=== PATIENT | female | born 2005 | race Two or more races ===

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

== ENCOUNTER 2025-07-10 20:56 | Emergency (ER) | payer SELFPAY ==
--- NOTE | ~2025-07-10 | XR_ITS ---
CLINICAL HISTORY: sob, cough 2 view chest x-ray Comparison: CR - XR CHEST 1V - 12/07/24 21:57 EDT Findings: No consolidation or pleural effusion. Normal size heart. No acute fracture. IMPRESSION: 1. No acute findings. This document has been electronically signed by: Carmen Ascencio MD on 07/10/2025 21:48:04
[2025-07-10 21:03] VITALS: BP 123/80; PULSE 101; RESP 22; TEMP 37; O2SAT 93; BMI 19.5
--- NOTE | 2025-07-10 21:34 | ED_ITS ---
HPI - URI/Sore Throat General Chief Complaint: Upper Respiratory Symptoms Stated Complaint: difficulty breathing Time Seen by Provider: 07/10/25 21:28 Source: patient Mode of arrival: ambulatory Limitations: no limitations History of Present Illness ED Provider: Dr. Lavinia Croft HPI Narrative: Patient comes to the emergency room complaining of 1 day of cough, congestion, and a bit of shortness of breath. Patient denies nausea vomiting diarrhea, denies fever or chills. Related Data Previous Rx's ?Medication ?Instructions ?Recorded cimetidine 200 mg tablet (Tagamet 200 mg PO QID 14 day s #56 tabs 05/06/21 HB) ondansetron 4 mg disintegrating 4 mg PO Q6-8H PRN naus ea and 05/06/21 tablet vomiting #14 tabs ondansetron HCl 4 mg tablet 4 mg PO Q8H PRN nausea and 05/12/21 (Zofran) vomiting #10 tabs diphenhydramine HCl 25 mg capsule 25 mg PO QID PRN all ergic 04/19/22 (Benadryl) reaction, rash, itchiness #2 0 caps prednisone 20 mg tablet 40 mg (2 x 20 mg) PO DAILY 5 days 04/19/22 #10 tabs albuterol sulfate 90 mcg/actuation 1 inh inhalation QI D PRN shortness 12/07/24 aerosol inhaler of breath or wheezing #6.7 g phyllis prednisone 20 mg tablet 20 mg PO DAILY #4 tabs 12/07 Allergies Allergy/AdvReac Type Severity Reaction Status Date / Time No Known Allergies Allergy Verified 07/10/25 21:04 Review of Systems Review of Systems: Constitutional : No Weight loss, No Fever, No Chills, No Night Sweats, No Fatigue, No Malaise ENT/Mouth : No Hearing loss, No Ear Pain, complaining of Nasal Congestion, No Sinus Pain, No Hoarseness, No sore throat, No Rhinorrhea, No Swallowing Difficulty Eyes: No Eye Pain, No Swelling, No Redness, No Foreign Body, No Discharge, No Vision Changes Cardiovascular : No Chest Pain, No SOB, No Dyspnea on Exertion, No Orthopnea, No Edema, No Palpitations Respiratory : Complaining of mild cough, shortness of breath Gastrointestinal : No Nausea, No Vomiting, No Diarrhea, No Constipation, No abdominal Pain, No Hematochezia, No Melena Genitourinary : no irregular bleeding, No Dysuria, No Urinary Frequency, No Hematuria, No Urinary Incontinence, No Urgency, No Flank Pain, No Urinary Flow Changes, No Hesitancy Musculoskeletal : No joint pain, No Myalgias, No Joint Swelling Skin : No Skin Lesions, No rash Neuro : No Weakness, No Numbness, No Paresthesias, No Loss of Consciousness, No Dizziness, No Headache Psych : No Anxiety/Panic, No Depression, No SI/HI/AH/VH, No Social Issues, Heme/Lymph: No Bruising, No Bleeding,No Lymphadenopathy Endocrine : No Polyuria, No Polydipsia, No Temperature Intolerance [facility] Social History Social History Alcohol intake: never Patient Tobacco Use Status: Never used Tobacco Substance Use Type: Marijuana Advance Directives: No Advance Directives Information Provided: No Do you have a plan to hurt others: No Plan Physical Exam Exam: Exam: Appearance: Alert. Oriented X3. No acute distress. Eyes: Pupils equal, round and reactive to light. ENT: Pharynx normal. Patient's seems congested Neck: Normal inspection. Neck supple. No lymph nodes noted. No crepitus CVS: Normal heart rate and rhythm. Pulses normal. Normal S1 and S2 Respiratory: No respiratory distress. Mild bilateral wheezing, no rales or crackles Abdomen: Soft and nontender. No rigidity. No distention. Skin: Skin warm and dry. Normal skin color. Normal skin turgor. Extremities: No lower extremity edema. No Lacerations. No Rash Neuro: Oriented X 3. No motor deficit. No sensory deficit. Moving all extremities. No slurred speech. CN 2 through 12 grossly intact Psych: calm, cooperative, normal affect Vital Signs: Vital Signs: Last Vital Signs Temp 98.6 F 07/10/25 21:03 Pulse 101 H 07/10/25 21:03 Resp 22 H 07/10/25 21:03 BP 123/80 07/10/25 21:03 Pulse Ox 93 07/10/25 21:03 O2 Del Method Room Air 07/10/25 21:03 BMI result Body Mass Index 19.5 Course Course Course Narrative: All of patient's labs pending Patient has very mild wheezing bilaterally. Patient was given p.o. prednisone and albuterol Medications Administered Discontinued Medications Generic Name Dose Route Start Last Admin Trade Name Freq PRN Reason Stop Dose Admin Albuterol Sulfate 4 puff 07/10/25 21:31 07/10/25 22:26 Albuterol Sulfate 90 Mcg 8 Gm Inhaler INHALE 07/10/25 21:32 4 puff ONCE ONE Administration Prednisone 60 mg 07/10/25 21:31 07/10/25 21:47 Prednisone 20 Mg Tablet PO 07/10/25 21:32 60 mg ONCE ONE Administration Medical Decision Making Medical Decision Making [facility] Narrative: Serology is negative for RSV COVID and influenza Chest x-ray does not show any acute abnormality. When I went to talk to the patient to discuss the results and to reassess the patient, she was no where to be found. Registration saw her walking out. After patient received her dose of prednisone and inhaler, patient eloped Differential Diagnosis Differential Diagnoses: The differential diagnosis associated with the presentation includes (Asthma exacerbation, RSV, influenza,) Lab Data [facility] Lab Attestation statement: I reviewed the patient's lab results. Labs: Lab Results 07/10/25 Range/Units 21:10 Influenza Type A (PCR) NEGATIVE (Negative) Influenza Type B (PCR) NEGATIVE (Negative) RSV RNA Qual (PCR) NEGATIVE (Negative) SARS-CoV-2 RNA (RT-PCR) NEGATIVE (Negative) Independent Interpretation I performed an independent interpretation of an: Plain X-Ray Interpretation: No consolidation or pleural effusion. Normal size heart. No acute fracture. IMPRESSION: 1. No acute findings. Discharge Plan Discharge Clinical Impression: Upper respiratory infection, Asthma exacerbation Patient Disposition: Elopement Prescriptions: No Action cimetidine [Tagamet HB] 200 mg tablet 200 mg PO QID 14 Days Qty: 56 0RF Rx Instructions: give at meals and bedtime ondansetron 4 mg tablet,disintegrating 4 mg PO Q6-8H PRN (Reason: nausea and vomiting) Qty: 14 0RF ondansetron HCl [Zofran] 4 mg tablet 4 mg PO Q8H PRN (Reason: nausea and vomiting) Qty: 10 0RF prednisone 20 mg tablet 40 mg PO DAILY 5 Days Qty: 10 0RF diphenhydramine HCl [Benadryl] 25 mg capsule 25 mg PO QID PRN (Reason: allergic reaction, rash, itchiness) Qty: 20 0RF albuterol sulfate 90 mcg/actuation HFA aerosol inhaler 1 inh inhalation QID PRN (Reason: shortness of breath or wheezing) Qty: 6.7 0RF prednisone 20 mg tablet 20 mg PO DAILY Qty: 4 0RF Discharge Date/Time: 07/10/25 23:45 Print Language: [place]
[2025-07-10] MEDS: Albuterol Sulfate 90 MCG 8 GM INHALER 4 PUFF INHALE (22:26)
--- OUTSIDE RECORDS SUMMARY | 2025-07-10 22:27 | XMS_ITS | Clinical Summary ---
Author Organization [facility] Address [address] [place] [phone] Phone Care Team Providers Care Medical Records Library Professor Name Role Phone Unavailable Primary Care Provider [...] 76 03/24/2015 12:00 AM EDT Temperature 36.6 C (97.8 F) 03/18/2015 12:00 AM EDT Respiratory Rate - - Oxygen Saturation - - Inhaled Oxygen Concentration - - Weight 28.8 kg (63 lb 9.6 oz) 03/24/2015 12:00 A M EDT Height 131.4 cm (4' 3.75 ) 03/24/2015 12:00 AM E DT Body Mass Index 16.7 03/24/2015 12:00 AM EDT Plan of Treatment Health Maintenance Due Date Last Done Comments DTaP,Tdap,and Td Vaccines (6 - Tdap) 2016 03/04/2010, 01/22/2007, 01/23/2006, Additional history exists HPV Vaccines (1 - 3-dose series) 2020 Men B Vaccine (1 of 2 - Standard) 2021 Influenza Vaccines (#1) 2025 04/08/20 11, 04/26/2007, 09/20/2006 COVID-19 Vaccine ( season) 2025 Hepatitis B Vaccines Completed 01/23/2006, 2005, 2005, [...]
--- OUTSIDE RECORDS SUMMARY | 2025-07-10 22:27 | XMS_ITS | Encounter Summary ---
Author Organization [facility] Address [address] [place] [phone] Phone Care Team Providers Care Assistant Manager Pt Name Role Phone Allen Issa MD Primary Care Provider [phone] Encounter Details Date Type Department Care Team (Late st Contact Info) Description 03/25/2015 Documentation [facility] [place] [address] [place] [address] Family Medicine, Physician [address] [place], [place] [phone] Social History Tobacco Use Types Packs/Day Years [...] on filedocumented in this encounter Care Teams Assistant Manager Pt Relationship Specialty Start Date End Date Allen Issa MD [address] [facility] [address] PCP - General 03/17/17 09/27/22 documented as of this encounter
--- OUTSIDE RECORDS SUMMARY | 2025-07-10 22:27 | XMS_ITS | Clinical Summary ---
Author Organization [employer] Address [address] [place] [address] [address] [place] [address] Care Team Providers Care Manager Oracle Database Name Role Phone Unavailable Primary Care Provider Unavailabl e Social History Tobacco Use Types Packs/Day Years Used Date Smoking Tobacco: Never Assessed Comments Unknown Sex and Gender Information Value Date Recorded Sex Assigned at Female 06/06/2022 10:22 AM EDT Legal Sex Female 10:22 AM EDT Gender Identity Female 06/06/2022 10:22 AM EDT Sexual Orientation Straight 06/06/2022 10 :22 AM EDT Last Filed Vital Signs Vital Sign Reading Time Taken Comments Blood Pressure 110/78 06/04/2021 12:10 AM EDT Pulse 80 06/04/2021 12:10 AM EDT Temperature - - Respiratory Rate - - Oxygen Saturation - - Inhaled Oxygen Concentration - - Weight 48.6 kg (107 lb 3.2 oz) 06/04/2021 12:10 AM EDT Height 158.5 cm (5' 2.42 ) 06/04/2021 12:10 AM E DT Body Mass Index 19.34 06/04/2021 12:10 AM EDT Plan of Treatment Health Maintenance Due Date Last Done Comments Depression Screening 2005 Disability Screening 2005 Alcohol/Substance Use Screening 2017 Tobacco Screening 2017 Family Planning (PISQ) 2020 Meningococcal B Vaccine (1 of 2 - Standard) 2021 Chlamydia and Gonorrhea Screening 06/04/2022 06/04/2021 COVID-19 Vaccine ( season) 2025 06/08/2021, 05/18/2021 Influenza Vaccine (#1) 2025 , 05/14/2019, 04/08/2011, Additional history exists DTaP/Tdap/Td Vaccines (7 - Td or Tdap) 03/07/2029 03/07/2019, 03/04/2010, 01/22/2007, Additional history exists Zoster Vaccines (1 of 2) 2055 RSV Patients and Patients Aged 60 years or older (1 - 1-dose 75+ series) 2080 Hepatitis B Vaccines Completed 01/23/2006, 2005, 2005, Additional history exists Pneumococcal Vaccine: Pediatrics (0 to 5 Years) and At-Risk Patients (6 to 49) Years Completed 01/22/2007, 01/23/2006, 2005, Additional history exists Hepatitis A Vaccines Completed 04/26/2007, 09/20/19 07 IPV Vaccines Completed 03/04/2010, 09/07, 01/23/2006, Additional history exists Meningococcal Vaccine Aged Out 03/07/2019 No markus cecelia eligible based on patient's age to complete this topic HPV Vaccines Completed 06/04/2021, 03/07/2019 HIB Vaccines Aged Out No longer eligi ble based on patient's age to complete this topic RSV under 20 months Aged Out No longe r eligible based on patient's age to complete this topic Rotavirus Vaccines Aged Out No longer eligible based on patient's age to complete this topic Procedures Procedure Name Priority Date/Time Associated Diagnosis Comments ZZZ HISTORICAL CHLAMYDIA/N. GONORRHOEAE RNA, TMA, UROGENITAL Routine 06/04/2021 10:47 AM EDT from Last 3 Months or Most Recently Relevant to Health Maintenance Results * CHLAMYDIA/N. GONORRHOEAE RNA, TMA, UROGENITAL (06/04/2021 10:47 AM EDT) Chlamydia trachomatis RNA, TMA, Urogenital NOT DETECTED NOT DETECTED [facility] COMMENT SEE [facility] Comment: The analytical performance characteristics of this assay, when used to test SurePath(TM) specimens have been determined by [employer]. The modifications have not been cleared or approved by the FDA. This assay has been validated pursuant to the CLIA regulations and is used for clinical purposes. For additional information, please refer to https://education.[employer]/faq/VZB623 (This link is being provided for information/ educational purposes only.) Neisseria gonorrhoeae RNA, TMA, Urogenital NOT DETECTED NOT DETECTED [facility] 06/04/2021 10:4 7 AM EDT us Anum Santana MD HISTORICAL/NON ORDERABLE LABS Final Result [facility] [address] from Last 3 Months or Most Recently Relevant to Health Maintenance
--- OUTSIDE RECORDS SUMMARY | 2025-07-10 22:27 | XMS_ITS | Encounter Summary ---
Author Organization [facility] Address [address] [place] [phone] Phone Care Team Providers Care Forgeman Helper Name Role Phone Allen Issa MD Primary Care Provider [phone] Encounter Details Date Type Department Care Team (Late st Contact Info) Description 04/30/2012 Documentation [facility] Medicine [address] [place] [address] Family Medicine, Physician [address] [place], [place] [id number] Social History Tobacco Use Types Packs/Day Years [...] on filedocumented in this encounter Care Teams Forgeman Helper Relationship Specialty Start Date End Date Allen Issa MD [address] [facility] [place] [address] PCP - General 03/17/17 09/27/22 documented as of this encounter
--- OUTSIDE RECORDS SUMMARY | 2025-07-10 22:27 | XMS_ITS | Encounter Summary ---
Author Organization [facility] Address [address] [place] [id number] Phone Care Team Providers Care Process Safety Engineer Name Role Phone Allen Issa MD Primary Care Provider [phone] Encounter Details Date Type Department Care Team (Late st Contact Info) Description 04/12/2011 Documentation [facility] [address] [place] [address] Family Medicine, Physician [address] [place], [place] [phone] Social History Tobacco Use Types Packs/Day Years [...] on filedocumented in this encounter Care Teams Process Safety Engineer Relationship Specialty Start Date End Date Allen Issa MD [address] [place] [address] PCP - General 03/17/17 09/27/22 documented as of this encounter
--- OUTSIDE RECORDS SUMMARY | 2025-07-10 22:27 | XMS_ITS | Encounter Summary ---
Author Organization [facility] Address [address] [place] [phone] Phone Care Team Providers Care Computer System Technician Name Role Phone Allen Issa MD Primary Care Provider [phone] Encounter Details Date Type Department Care Team (Late st Contact Info) Description 03/23/2017 Conversion Encounter [facility] [place] [address] [place] [address] Social History Tobacco Use Types Packs/Day Years [...] on filedocumented in this encounter Care Teams Computer System Technician Relationship Specialty Start Date End Date Allen Issa MD [address] [place] [address] PCP - General 03/17/17 09/27/22 documented as of this encounter
--- OUTSIDE RECORDS SUMMARY | 2025-07-10 22:27 | XMS_ITS | Encounter Summary ---
Author Organization [facility] Address [address] [place] [address] Phone Care Team Providers Care Weigh Tank Operator Name Role Phone Allen Issa MD Primary Care Provider [phone] Encounter Details Date Type Department Care Team (Late st Contact Info) Description 12/03/2010 Documentation [facility] [address] [place] [address] Family Medicine, Physician [address] [place], [place] [phone] Social History Tobacco Use Types Packs/Day Years [...] on filedocumented in this encounter Care Teams Weigh Tank Operator Relationship Specialty Start Date End Date Allen Issa MD [address] [facility] [place] [address] PCP - General 03/17/17 09/27/22 documented as of this encounter
[2025-07-10 23:22] LABS: Resp Syncy Virus RNA Qual PCR NEGATIVE (Negative); SARS COV2 PCR INHOUSE NEGATIVE (Negative)
--- NOTE | 2025-07-10 23:36 | PC.NURSE ---
patient was observed sitting on stretcher at 11pm when this nurse took over patient care. when MD went to see patient, patient not found to be on stretcher. checked bathrooms and patient was not there. registration stated they saw patient leaving ED.
== END 2025-07-10 23:45 | disposition left against medical advice (07) ==
PROVIDERS: Emergency Provider Emergency Medicine
DX: J06.9 Acute upper respiratory infection, unspecified (principal); J45.901 Unspecified asthma with (acute) exacerbation; R05.9 Cough, unspecified; R06.02 Shortness of breath; R06.00 Dyspnea, unspecified; Z03.818 Encounter for observation for suspected exposure to other biological agents ruled out
CPT/HCPCS: 71046; 87637; 99281; 99284

== ENCOUNTER → 2025-07-10 21:18 | Outpatient (BNV) | payer SELFPAY | PROVIDERS: Emergency Provider Emergency Medicine; Visit Provider Student in an Organized Health Care Education/Training Program | DX: R05.9 Cough, unspecified (principal); R06.02 Shortness of breath | CPT/HCPCS: 71046 ==